=== PATIENT | male | born 1980 | race Two or more races ===

== ENCOUNTER 2016-12-14 14:15 | Emergency (ER) | payer OTHER ==
--- NOTE | 2016-12-14 15:22 | RAD ---
Exam: Three-view left knee COMPARISON: None INDICATION: Slipped on ice, felt a pop in knee. Findings: AP, lateral and sunrise views of left knee were obtained. There is no significant joint effusion. Alignment is normal. No fracture is identified. Minor osteophyte formation is seen along the tibial spines. Joint spaces are preserved. IMPRESSION: No acute osseous abnormality in the left knee.
== END 2016-12-14 16:22 | disposition home or self-care (01) ==
LOC: ED 14:15
DX: S80.02XA Contusion of left knee, initial encounter (principal); W00.0XXA Fall on same level due to ice and snow, initial encounter; Y92.89 Other specified places as the place of occurrence of the external cause; Y99.0 Civilian activity done for income or pay